=== PATIENT | male | born 1950 | race Caucasian/White ===

== ENCOUNTER 2022-03-15 01:15 | Emergency (ER) | payer MEDICARE, MEDICAID, SELFPAY ==
[2022-03-15 01:51] VITALS: BP 113/89; PULSE 104; RESP 16; TEMP 36.8; O2SAT 100; BMI 24.1
[2022-03-15 07:36] VITALS: BP 164/101; PULSE 77; RESP 17; TEMP 36.9; O2SAT 99
--- NOTE | 2022-03-15 08:03 | ED.EXTPRO ---
HPI - Extremity Problem General Chief complaint: Extremity Problem Stated complaint: blister on foot Time Seen by Provider: 03/15/22 07:51 Source: patient Mode of arrival: ambulatory Limitations: no limitations History of Present Illness HPI Narrative: This is a very pleasant 71 years old male presented to the ED with chief complaint of a blister in the right lower extremity, atraumatic, since yesterday morning. Patient denies any systemic symptoms such as fever chills vomiting diarrhea. He has history of vasculitis is on prednisone 5 mg daily chronically. MD Complaint: other (Right leg blister) Onset (ago): day(s) (1) Pain Consistency: constant Location: right and lower extremity Quality: constant Radiation: none Exacerbating factors: nothing Related Data Home Medications Medication Instructions Recorded Confirmed amlodipine 5 mg tablet 5 mg PO DAILY 08/15/21 cholecalciferol (vitamin D3) 50 50 mcg PO DAILY 08/15/21 mcg (2,000 unit) tablet hydralazine 50 mg tablet 50 mg PO TID 08/15/21 prednisone 5 mg tablet 5 mg PO DAILY 08/15/21 simvastatin 5 mg tablet 5 mg PO DAILY 08/15/21 Allergies Allergy/AdvReac Type Severity Reaction Status Date / Time No Known Allergies Allergy Unverified 05/09/20 15:37 [No Known Allergies*] Review of Systems Review of Systems: Yes all other systems are reviewed and are negative Constitutional: Constitutional: Reports no additional constitutional complaints Cardiovascular: Cardiovascular: Reports no additional cardiovascular complaints Respiratory: Respiratory: Reports no additional respiratory complaints Musculoskeletal: Musculoskeletal: Reports no additional musculoskeletal complaints [facility] Past Medical History [facility] Narrative: Hypertension, vasculitis Social History Social History Advance Directives: Yes Advance Directives Information Provided: Yes Advance Directives on File: No Physical Exam Vital Signs: Vital Signs: Last Vital Signs Temp 98.5 F 03/15/22 07:36 Pulse 77 03/15/22 07:36 Resp 17 03/15/22 07:36 BP 164/101 H 03/15/22 07:36 Pulse Ox 99 03/15/22 07:36 O2 Del Method 03/15/22 07:36 BMI result Body Mass Index 24.1 Const: Other: On examination he looks well is no toxic-appearing General: cooperative, healthy appearing and comfortable Nutritional Appearance: average body habitus Orientation/consciousness: patient oriented x3 Limitations: no limitations HEENT: Head: Yes normal to inspection Neck: Neck: Yes normal visual inspection and Yes full ROM Resp: Effort & Inspection: normal respiratory effort and able to speak in complete sentences Auscultation: clear to auscultation bilaterally Percussion: percussion normal Cardio: Jugular venous distension: no JVD Rate: regular rate Rhythm: regular rhythm GI: Inspection: Yes normal to inspection Palpation (GI): Soft to palpation, not firm and nontender Auscultation: normal bowel sounds Skin: Other: Neuro: General: patient oriented x3 Extrem: Other: Examination the right lower extremity shows good palpable pulses, there is a 2 cm blister in the anterolateral aspect of the distal right leg. No evidence of cellulitis Course Reevaluation(s) Reevaluation #1: Remain nontoxic afebrile labs are within normal limits I think it can be discharged home and follow up with is primary care physician. I explained him that the the blister can break in that case he should keep clean and covered MDM - Extremity (Nontraumatic) Lab Data Result diagrams: 03/15/22 09:15 03/15/22 09:15 Labs: Lab Results 03/15/22 03/15/22 03/15/22 Range/Units 09:15 09:15 09:15 WBC 5.8 (4.8-10.8) X10*3/uL RBC 4.70 (4.60-5.80) X10*6/uL Hgb 14.9 (14.0-18.0) g/dl Hct 44.5 (42.0-52.0) % MCV 94.7 (80.0-98.0) fL MCH 31.7 (27.0-33.0) pg MCHC 33.5 (31.0-36.0) g/dl RDW 13.1 (11.0-16.0) % Plt Count 165 (160-400) X10*3/uL MPV 9.8 (9.4-12.4) fL Immature Gran % (Auto) 0.5 H (0.0-0.4) % Neut % (Auto) 75.0 H (45-73) % Lymph % (Auto) 15.5 L (20-40) % [place] % (Auto) 7.1 (2-11) % Eos % (Auto) 1.4 (0-4) % Baso % (Auto) 0.5 (0-2) % Lymph # (Auto) 0.9 L (1.2-4.9) X10*3/uL [place] # (Auto) 0.4 (0.1-1.2) X10*3/uL Eos # (Auto) 0.1 (0.0-0.4) X10*3/uL Baso # (Auto) 0.0 (0.0-0.2) X10*3/uL Abs Immat Gran (auto) 0.03 (0.00-0.03) X10*3/uL Absolute Neuts (auto) 4.3 (2.0-8.3) x10*3/uL Absolute Nucleated RBC 0.000 (0.0-0.012) X10*3/uL Nucleated RBC % (auto) 0.0 (0.0-0.2) /100WBC PT (10.0-13.1) SEC INR (0.9-1.1) APTT 34.0 (24.1-38.0) SEC Sodium 135 (135-145) mmol/L Potassium 4.1 (3.3-5.1) mmol/L Chloride 104 (96-108) mmol/L Carbon Dioxide 22 (22-29) mmol/L Anion Gap 13 (12-20) BUN 12 (9-16) mg/dL Creatinine 0.91 (0.5-1.4) mg/dL Estim Creat Clear Calc 82.9 Estimated GFR > 60 Random Glucose 105 (60-115) mg/dL Calcium 9.4 (8.4-10.2) mg/dL Total Bilirubin 0.7 (0.0-1.0) mg/dL AST 33 (5-37) U/L ALT 22 (0-40) U/L Alkaline Phosphatase 98 (39-117) U/L Total Protein 7.2 (6.5-8.0) g/dL Albumin 4.4 (3.5-5.0) g/dL 03/15/22 Range/Units 09:15 WBC (4.8-10.8) X10*3/uL RBC (4.60-5.80) X10*6/uL Hgb (14.0-18.0) g/dl Hct (42.0-52.0) % MCV (80.0-98.0) fL MCH (27.0-33.0) pg MCHC (31.0-36.0) g/dl RDW (11.0-16.0) % Plt Count (160-400) X10*3/uL MPV (9.4-12.4) fL Immature Gran % (Auto) (0.0-0.4) % Neut % (Auto) (45-73) % Lymph % (Auto) (20-40) % [place] % (Auto) (2-11) % Eos % (Auto) (0-4) % Baso % (Auto) (0-2) % Lymph # (Auto) (1.2-4.9) X10*3/uL [place] # (Auto) (0.1-1.2) X10*3/uL Eos # (Auto) (0.0-0.4) X10*3/uL Baso # (Auto) (0.0-0.2) X10*3/uL Abs Immat Gran (auto) (0.00-0.03) X10*3/uL Absolute Neuts (auto) (2.0-8.3) x10*3/uL Absolute Nucleated RBC (0.0-0.012) X10*3/uL Nucleated RBC % (auto) (0.0-0.2) /100WBC PT 11.0 (10.0-13.1) SEC INR 1.0 (0.9-1.1) APTT (24.1-38.0) SEC Sodium (135-145) mmol/L Potassium (3.3-5.1) mmol/L Chloride (96-108) mmol/L Carbon Dioxide (22-29) mmol/L Anion Gap (12-20) BUN (9-16) mg/dL Creatinine (0.5-1.4) mg/dL Estim Creat Clear Calc Estimated GFR Random Glucose (60-115) mg/dL Calcium (8.4-10.2) mg/dL Total Bilirubin (0.0-1.0) mg/dL AST (5-37) U/L ALT (0-40) U/L Alkaline Phosphatase (39-117) U/L Total Protein (6.5-8.0) g/dL Albumin (3.5-5.0) g/dL Discharge Plan Discharge Clinical Impression: Blister of leg, right Patient Disposition: Home, Self-Care Additional Instructions: Follow-up with your primary care physician, return if you worse, if the blister break keep it clean and cover with gauze Prescriptions: No Action simvastatin 5 mg tablet 5 mg PO DAILY amlodipine 5 mg tablet 5 mg PO DAILY hydralazine 50 mg tablet 50 mg PO TID prednisone 5 mg tablet 5 mg PO DAILY cholecalciferol (vitamin D3) 50 mcg (2,000 unit) tablet 50 mcg PO DAILY Referrals: Tonny Chamberlain MD [Primary Care Provider] - 2 days Interventions: ED Discharge Assessment Last Done: 03/15/22 09:58 Discharge Date/Time: 03/15/22 09:58
[2022-03-15 09:19] LABS: MANUAL DIFF FLAG NO
[2022-03-15 09:21] LABS: Basophils Percent Auto 0.5 % (0-2); Eosinophils Absolute Auto 0.1 X10*3/uL (0.0-0.4); Eosinophils Percent Auto 1.4 % (0-4); Hematocrit 44.5 % (42.0-52.0); Hemoglobin 14.9 g/dl (14.0-18.0); Imm Gran Abs Auto 0.03 X10*3/uL (0.00-0.03); Imm Gran Pct Auto 0.5 % (0.0-0.4); Lymphocytes Absolute Auto 0.9 X10*3/uL (1.2-4.9); Lymphocytes Percent Auto 15.5 % (20-40); Mean Corpuscular HGB Conc 33.5 g/dl (31.0-36.0); Mean Corpuscular Hemoglobin 31.7 pg (27.0-33.0); Mean Corpuscular Volume 94.7 fL (80.0-98.0); Mean Platelet Volume 9.8 fL (9.4-12.4); Monocytes Absolute Auto 0.4 X10*3/uL (0.1-1.2); Monocytes Percent Auto 7.1 % (2-11); Neutrophils Absolute Auto 4.3 x10*3/uL (2.0-8.3); Platelet Count 165 X10*3/uL (160-400); Red Cell Distribution Width 13.1 % (11.0-16.0); White Blood Count 5.8 X10*3/uL (4.8-10.8)
[2022-03-15 09:37] LABS: Alanine Aminotransferase 22 U/L (0-40); Albumin Level 4.4 g/dL (3.5-5.0); Alkaline Phosphatase 98 U/L (39-117); Anion Gap 13 (12-20); Aspartate Amino Transferase 33 U/L (5-37); Bilirubin Total 0.7 mg/dL (0.0-1.0); Blood Urea Nitrogen 12 mg/dL (9-16); Calcium 9.4 mg/dL (8.4-10.2); Carbon Dioxide 22 mmol/L (22-29); Chloride 104 mmol/L (96-108); Creatinine Clr Calc Pharmacy 82.9; Estimated Glomerular Filt Rate > 60; Glucose Random 105 mg/dL (60-115); Potassium 4.1 mmol/L (3.3-5.1); Sodium 135 mmol/L (135-145); Total Protein 7.2 g/dL (6.5-8.0)
== END 2022-03-15 09:58 | disposition home or self-care (01) ==
PROVIDERS: Emergency Provider Emergency Medicine; PCP Internal Medicine
DX: S80.821A Blister (nonthermal), right lower leg, initial encounter (principal); X58.XXXA Exposure to other specified factors, initial encounter; Y93.9 Activity, unspecified; Y92.9 Unspecified place or not applicable; Y99.9 Unspecified external cause status; Z79.899 Other long term (current) drug therapy
CPT/HCPCS: 36415; 80053; 85025; 85610; 85730; 99283

== ENCOUNTER 2022-06-25 10:04 | Emergency (ER) | payer MEDICARE, MEDICAID, SELFPAY ==
[2022-06-25 10:45] VITALS: BP 162/97; PULSE 108; RESP 18; TEMP 36.8; O2SAT 98; BMI 23.7
--- NOTE | 2022-06-25 13:13 | ED_ITS ---
HPI - Skin/Abscess/Foreign Bdy General Chief complaint: Skin/Abscess/Foreign Body Stated complaint: Bleeding Callous Bottom R Foot Time Seen by Provider: 06/25/22 12:42 Source: patient, RN notes reviewed and old records reviewed Mode of arrival: ambulatory Limitations: no limitations History of Present Illness HPI narrative: 72-year-old male is he here today for bleeding of right foot callus. Patient seen his veterinary technology instructor the middle of May to trimmed his callus to his right foot. Patient reports that he had no issues, no bleeding no s/sx of infection Last night he applied sticky foam to protect from rubbing against his shoe and when he removed that this morning he noticed that there was bleeding. Patient reports that he pulled piece of skin with it. Small amount of bleeding. Patient got scared. Called his veterinary technology instructor and has an appointment with him on Wednesday at 16:00. Patient is not diabetic. Patient denies having any arterial or venous insufficiency. No fever or chills, no serosanguineous drainage. Patient denies any increased discomfort. MD complaint: other (Callus) Onset (ago): day(s) Severity: mild Related Data Home Medications Medication Instructions Recorded Confirmed amlodipine 5 mg tablet 5 mg PO DAILY 08/15/21 cholecalciferol (vitamin D3) 50 50 mcg PO DAILY 08/15/21 mcg (2,000 unit) tablet hydralazine 50 mg tablet 50 mg PO TID 08/15/21 prednisone 5 mg tablet 5 mg PO DAILY 08/15/21 simvastatin 5 mg tablet 5 mg PO DAILY 08/15/21 Allergies Allergy/AdvReac Type Severity Reaction Status Date / Time No Known Allergies Allergy Unverified 05/09/20 15:37 [No Known Allergies*] Review of Systems Review of Systems: Constitutional : No Weight loss, No Fever, No Chills, No Night Sweats, No Fatigue, No Malaise ENT/Mouth : No Hearing loss, No Ear Pain, No Nasal Congestion, No Sinus Pain, No Hoarseness, No sore throat, No Rhinorrhea, No Swallowing Difficulty Musculoskeletal : No joint pain, No Myalgias, No Joint Swelling Skin : No Skin Lesions, No rash, Neuro : No Weakness, No Numbness, No Paresthesias, No Loss of Consciousness, No Dizziness, No Headache Psych : No Anxiety/Panic, No Depression, No SI/HI/AH/VH, No Social Issues, Heme/Lymph: No Bruising, No Bleeding,No Lymphadenopathy Endocrine : No Polyuria, No Polydipsia, No Temperature Intolerance Yes all other systems are reviewed and are negative PMFSH Social History Social History Advance Directives: Yes Advance Directives Information Provided: Yes Advance Directives on File: No Physical Exam Vital Signs: Vital Signs: Last Vital Signs Temp 98.2 F 06/25/22 10:45 Pulse 108 H 06/25/22 10:45 Resp 18 06/25/22 10:45 BP 162/97 H 06/25/22 10:45 Pulse Ox 98 06/25/22 10:45 O2 Del Method 06/25/22 10:45 BMI result Body Mass Index 23.7 Const: General: healthy appearing, no acute distress and well developed Nu tritional Appearance: well nourished Orientation/consciousness: patient oriented x3 HEENT: Head: Yes normal to inspection, Yes normocephalic and Yes atraumatic Face and sinus: Yes normal facial exam Mouth: Normal oral and palatal mucosa present Throat: Yes posterior oropharynx normal, Yes tonsils normal and Yes uvula midline Eyes: General: appearance normal, both eyes and all related structures Neck: Neck: Yes normal visual inspection, Yes full ROM and Yes trachea midline Thyroid: Thyroid normal Resp: Effort & Inspection: normal respiratory effort and tracheal deviation : General: Yes no CVA tenderness Back/Spine/Pelvis: Back: no CVA tenderness Skin: General skin exam: elasticity normal, turgor normal and dry skin Neuro: General: patient oriented x3 Extrem: Other: General: Yes normal to inspection, Yes full ROM and Yes capillary refill normal Psych: Appearance: grossly normal Mental Status: mental status grossly normal Speech and movement: Normal speech and movement present Affect: normal affect Attitude: cooperative Thought process: Normal thought process present Thought content: Normal thought content present Insight: Good insight present (Psych) Judgement: Good judgement present (Psych) Course Course Course Narrative: 72-year-old male is he here today for bleeding of his right foot callus. Patient seen his veterinary technology instructor the middle of May to trimmed his callus to his right foot. Patient reports that he had no issues with that at. Last night he applied sticky foam to protect from rubbing against his shoe and when he removed that this morning he noticed that there was bleeding. Patient reports that he pulled piece of skin with it. Small amount of bleeding. Patient got scared. Called his veterinary technology instructor and has an appointment with him on Wednesday at 16:00. Patient is not diabetic. Patient denies having any arterial or venous insufficiency. Area cleaned, bacitracin applied and wrapped with cling. Picture was taken with patient's permission for the chart. Patient was instructed to return to the emergency department if he will have increased redness, swelling, warmth, fever or chills. MDM - Skin/Abscess/Foreign Bdy MDM Narrative Medical decision making narrative: wound care Medical Records Attestation: I reviewed the patient's medical records. Discharge Plan Discharge Clinical Impression: Callus Patient Disposition: Home, Self-Care Instructions: Chronic Wounds (ED) Additional Instructions: Please make sure that you keep your area clean and dry. Apply bacitracin daily with none sticky dressing. Making sure your wrap that with provided rap. Follow-up with your veterinary technology instructor on Wednesday. Make sure you watch for signs and symptoms of infection like increased redness, swelling, fever. If you do have any of those symptoms in should return to emergency department. Prescriptions: No Action simvastatin 5 mg tablet 5 mg PO DAILY amlodipine 5 mg tablet 5 mg PO DAILY hydralazine 50 mg tablet 50 mg PO TID prednisone 5 mg tablet 5 mg PO DAILY cholecalciferol (vitamin D3) 50 mcg (2,000 unit) tablet 50 mcg PO DAILY Interventions: ED Discharge Assessment Last Done: 06/25/22 14:01 Discharge Date/Time: 06/25/22 14:04
--- NOTE | 2022-06-25 13:58 | PC.NURSE ---
PT EVALUATED BY PROVIDER. WOUND ASSESSED, BACITRACIN APPLIED ALONG WITH DRESSING. PT ALREADY HAS APPT WITH GIS SOFTWARE ENGINEER ON WEDNESDAY. PLAN IS FOR DC HOME. PT AGREEABLE TO PLAN. STATES NO QUESTIONS. +CMS
== END 2022-06-25 14:04 | disposition home or self-care (01) ==
PROVIDERS: Emergency Provider Emergency Medicine; PCP Internal Medicine
DX: L84 Corns and callosities (principal)
CPT/HCPCS: 99282

== ENCOUNTER 2025-01-30 13:49 | Inpatient (IN) | payer MEDICARE, MEDICAID, SELFPAY ==
[2025-01-30] VITALS (7 sets, daily range): BP systolic 109–149; BP diastolic 76–94; PULSE 70–130; RESP 11–26; TEMP 36.4–36.6; O2SAT 96–100; BMI 20.3
--- NOTE | ~2025-01-30 | XR_ITS ---
EXAMINATION: XR CHEST CLINICAL INFORMATION: Chest Pain COMPARISON: 02/10/2008. TECHNIQUE: 2 views of the chest were obtained. FINDINGS: The cardiac, hilar, and mediastinal contours are normal. The lungs are clear bilaterally. There is no pneumothorax or pleural effusion. There is no focal osseous or soft tissue abnormality. There are mild wedge compression deformities of several thoracic vertebral bodies. These were not present in 2007. XR/XR chest 2V IMPRESSION: No active pulmonary disease. Electronically signed by: Tree Verma MD 01/30/2025 03:18 PM EDT RP
--- NOTE | 2025-01-30 13:54 | ECG_ITS ---
Test Reason : ?AFIB Blood Pressure : */* mmHG Vent. Rate : 95 BPM Atrial Rate : * BPM P-R Int : * ms QRS Dur : 74 ms QT Int : 348 ms P-R-T Axes : * 16 41 degrees QTcB Int : 437 ms Atrial fibrillation Nonspecific ST abnormality Abnormal ECG When compared with ECG of 20-Apr-2016 07:41, Atrial fibrillation has replaced Sinus rhythm Referred By: Generic ED Physician Electronically Signed By: DEIDRA PAIZ MD
--- NOTE | 2025-01-30 14:36 | ED_ITS ---
HPI - General Adult General Chief complaint: General Medical Stated complaint: New onset Afib, RVR, 120-150, CP & SOB x1 year Time Seen by Provider: 01/30/25 13:59 Source: patient and RN notes reviewed Mode of arrival: EMS Limitations: no limitations History of Present Illness HPI narrative: Patient is a 74-year-old male presents to the ED for evaluation of multiple complaints. The patient reports he and his significant other/switching clerk initially activated EMS via her life alert activation device as they have determined they are no longer able to care for each other in their home. Patient additionally advises he has been experiencing intermittent episodes of chest pain with tremor which then radiates into his upper abdomen with continued tremor and shortness of breath, symptoms then resolve spontaneously. Patient is unable to identify how long these episodes have been occurring, states he has potentially been experiencing months of symptoms. The patient denies associated recent sick contacts, illness, fever/chills, nausea, vomiting, diarrhea, urinary symptoms, headache, focal neurological deficit, dizziness, or recent fall or other blunt trauma. Patient reports he does suffer from vasculitis with previous left great toe amputation without associated diabetes. Patient reports while in the care of EMS patient was found to have new onset AFib with RVR, patient denies any history of irregular heartbeat, denies anticoagulation. Related Data Home Medications ?Medication ?Instructions ?Recorded ?Confirmed amlodipine 5 mg tablet 5 mg PO DAILY 08/15/21 cholecalciferol (vitamin D3) 50 50 mcg PO DAILY 08/15/21 mcg (2,000 unit) tablet hydralazine 50 mg tablet 50 mg PO TID 08/15/21 prednisone 5 mg tablet 5 mg PO DAILY 08/15/21 simvastatin 5 mg tablet 5 mg PO DAILY 08/15/21 Allergies Allergy/AdvReac Type Severity Reaction Status Date / Time No Known Allergies Allergy Verified 01/30/25 14:24 [No Known Allergies*] Review of Systems 2 Review of Systems: A complete review of systems was performed and was negative except as noted in HPI. [facility] Past Medical History Attestation statement: The following information was validated with the patient. Social History Social History Smoked in Last 30 Days: No Use of substances other than those prescribed or required for medical reasons: No Advance Directives: Yes Advance Directives Information Provided: Yes Advance Directives on File: No Do you have a plan to hurt others: No Plan Physical Exam ED Vital Signs: Vital Signs - 24 hr 01/30/25 14:22 Temperature 97.6 F Pulse Rate 101 H Respiratory Rate 20 Blood Pressure 133/85 Pulse Oximetry 100 Oxygen Delivery Method Room Air BMI result Body Mass Index 20.3 Const Other: CONSTITUTIONAL: The patient appears chronically ill, borderline cachectic, otherwise non-toxic, well nourished and in no acute distress. Vital signs as documented. HEAD: Atraumatic, normocephalic. EYES: EOMs grossly intact, pupils equal, conjunctiva clear, no exudate. ENT: Nares patent, no discharge. Airway patent, no audible stridor, visible mucosa is pink and moist without noted lesions. NECK: Trachea is midline, no obvious masses or gross abnormalities. ? CHEST: Symmetric movement, normal appearance. LUNGS: LS present and CTAB, no w/r/r. Non-labored work of breathing. CARDIAC: Regular Rhythm, S1/S2 appreciated, no murmurs, rubs or gallops. ABDOMEN: Abdomen soft/non-tender x4 quadrants, no masses or organomegaly. : Deferred. EXTREMITIES: Normal tone, moves all extremities spontaneously without reported pain. ?No obvious acute injury or deformity noted. ?There are severe chronic venous stasis color changes noted to the bilateral lower extremities, no associated edema, 2+ DP/PT pulses appreciated, patient is status post left great toe amputation, no open wounds identified, no associated warmth or tenderness. NEURO: Alert and oriented x3, CN II-XII appear grossly intact. Cerebellar Functioning grossly intact. ?Speech clear and appropriate. PSYCH: Anxious but otherwise normal affect, with appropriate eye contact and fluid, appropriate speech. No reported suicidality or homicidality. SKIN: Warm, dry, color appropriate, normal turgor. No rashes noted. Course Course Course Narrative: 01/30/25 1522: EKG in the ED shows new onset AFib compared to previous. Chest x-ray reviewed, shows no focal consolidation, no acute cardiopulmonary process, official read pending. At this time patient's laboratory evaluation is pending. 01/30/25 1623: CBC is resulted and shows no leukocytosis or anemia. Radiology interpretation of chest x-ray confirms no acute cardiopulmonary process. 01/30/25 1656: Remainder of laboratory workup has resulted, no other acute abnormalities identified, 1st troponin is negative. Minimal elevation of BNP. Patient's case discussed with admitting hospitalist Dr. Campbell, patient will be admitted to [facility] for new onset AFib. Per discussion with hospitalist the patient will be treated prophylactically with metoprolol tartrate to reduce risk of recurrent AFib with a RVR. Medical Decision Making Medical Decision Making MDM Narrative: Patient is a 74-year-old male presenting to the ED with multiple complaints including many months of intermittent chest and abdominal pain with associated shortness of breath and tremor. Patient also reports he and his significant other, who was also in the ED, are no longer able to care for themselves and their home and are seeking assistance with long-term care. On exam patient appears cachectic, moderately unkempt, but otherwise has no acute findings. Patient found to be in AFib with RVR by EMS, in the ED heart rate has improved, no indication for emergent rate control, EKG in the ED shows new onset AFib compared to previous. Chest x-ray reviewed, shows no focal consolidation, no acute cardiopulmonary process, official read pending. At this time patient's laboratory evaluation is pending. Seeing as the patient is in a new onset atrial fibrillation of unknown duration, patient will require echocardiogram, and cardiology consultation. Patient will be admitted for new onset atrial fibrillation pending remainder of laboratory workup. Differential Diagnosis Differential Diagnoses: The differential diagnosis associated with the presentation includes New onset atrial fibrillation, dehydration, failure to thrive, and malnourishment. ACS considered but is less likely. Admission/Observation Consideration of admission/observation: Escalation of care including admission/observation considered Lab Data [facility] Lab Attestation statement: I reviewed the patient's lab results. 01/30/25 16:04 01/30/25 16:04 Labs: Lab Results 01/30/25 01/30/25 Range/Units 16:04 16:07 WBC 6.5 (4.8-10.8) X10*3/uL RBC 4.68 (4.60-5.80) X10*6/uL Hgb 13.9 L (14.0-18.0) g/dl Hct 41.8 L (42.0-52.0) % MCV 89.3 (80.0-98.0) fL MCH 29.7 (27.0-33.0) pg MCHC 33.3 (31.0-36.0) g/dl RDW 13.9 (11.0-16.0) % Plt Count 157 L (160-400) X10*3/uL MPV 10.0 (9.4-12.4) fL Immature Gran % (Auto) 0.8 H (0.0-0.4) % Neut % (Auto) 71.7 (45-73) % Lymph % (Auto) 17.9 L (20-40) % [place] % (Auto) 7.9 (2-11) % Eos % (Auto) 1.1 (0-4) % Baso % (Auto) 0.6 (0-2) % Lymph # (Auto) 1.2 (1.2-4.9) X10*3/uL [place] # (Auto) 0.5 (0.1-1.2) X10*3/uL Eos # (Auto) 0.1 (0.0-0.4) X10*3/uL Baso # (Auto) 0.0 (0.0-0.2) X10*3/uL Abs Immat Gran (auto) 0.05 H (0.00-0.03) X10*3/uL Absolute Neuts (auto) 4.7 (2.0-8.3) x10*3/uL Absolute Nucleated RBC 0.000 (0.0-0.012) X10*3/uL Nucleated RBC % (auto) 0.0 (0.0-0.2) /100WBC Sodium 140 (135-145) mmol/L Potassium 4.1 (3.3-5.1) mmol/L Chloride 107 (96-108) mmol/L Carbon Dioxide 23 (22-29) mmol/L Anion Gap 14 (12-20) BUN 11 (9-16) mg/dL Creatinine 0.90 (0.5-1.4) mg/dL Estim Creat Clear Calc 68.2 Estimated GFR > 60 Random Glucose 88 (60-115) mg/dL Calcium 9.5 (8.4-10.2) mg/dL Magnesium 2.0 (1.6-2.6) mg/dL Total Bilirubin 0.9 (0.0-1.0) mg/dL AST 24 (5-37) U/L ALT 8 (0-40) U/L Alkaline Phosphatase 64 (39-117) U/L Troponin I High Sens 5.5 (<3.5-35.0) ng/L B-Natriuretic Peptide 111 H (<100) pg/mL Total Protein 6.2 L (6.5-8.0) g/dL Albumin 4.0 (3.5-5.0) g/dL Lipase 27 (8-78) U/L TSH 1.57 (0.32-4.0) uIU/mL Independent Interpretation I performed an independent interpretation of an: EKG (EKG shows atrial fibrillation with a rate of 95, no evidence of acute ischemia, no ST elevation, no ectopy. QTC 437. Compared to previous on 04/20/2016 atrial fibrillation is new.) and Plain X-Ray (Two-view chest shows no focal consolidation, no acute cardiopulmonary process identified.) Radiology Impression Discussion of test interpretation with radiology: I have reviewed the radiologist's reading. External Record Review External record reviewed: Inpatient record, Outpatient record, Prior outpatient labs and Prior outpatient radiology Discharge Plan Discharge Clinical Impression: Atrial fibrillation, new onset Patient Disposition: Admitted As Inpatient Prescriptions: No Action simvastatin 5 mg tablet 5 mg PO DAILY amlodipine 5 mg tablet 5 mg PO DAILY hydralazine 50 mg tablet 50 mg PO TID prednisone 5 mg tablet 5 mg PO DAILY cholecalciferol (vitamin D3) 50 mcg (2,000 unit) tablet 50 mcg PO DAILY Print Language: [place]
[2025-01-30 16:14] LABS: MANUAL DIFF FLAG NO
[2025-01-30 16:18] LABS: Basophils Percent Auto 0.6 % (0-2); Eosinophils Absolute Auto 0.1 X10*3/uL (0.0-0.4); Eosinophils Percent Auto 1.1 % (0-4); Hematocrit 41.8 % (42.0-52.0); Hemoglobin 13.9 g/dl (14.0-18.0); Imm Gran Abs Auto 0.05 X10*3/uL (0.00-0.03); Imm Gran Pct Auto 0.8 % (0.0-0.4); Lymphocytes Absolute Auto 1.2 X10*3/uL (1.2-4.9); Lymphocytes Percent Auto 17.9 % (20-40); Mean Corpuscular HGB Conc 33.3 g/dl (31.0-36.0); Mean Corpuscular Hemoglobin 29.7 pg (27.0-33.0); Mean Corpuscular Volume 89.3 fL (80.0-98.0); Monocytes Absolute Auto 0.5 X10*3/uL (0.1-1.2); Monocytes Percent Auto 7.9 % (2-11); Neutrophils Absolute Auto 4.7 x10*3/uL (2.0-8.3); Neutrophils Percent Auto 71.7 % (45-73); Platelet Count 157 X10*3/uL (160-400); Red Blood Count 4.68 X10*6/uL (4.60-5.80); Red Cell Distribution Width 13.9 % (11.0-16.0); White Blood Count 6.5 X10*3/uL (4.8-10.8)
[2025-01-30 16:30] LABS: Alanine Aminotransferase 8 U/L (0-40); Alkaline Phosphatase 64 U/L (39-117); Anion Gap 14 (12-20); Aspartate Amino Transferase 24 U/L (5-37); Bilirubin Total 0.9 mg/dL (0.0-1.0); Blood Urea Nitrogen 11 mg/dL (9-16); Calcium 9.5 mg/dL (8.4-10.2); Carbon Dioxide 23 mmol/L (22-29); Chloride 107 mmol/L (96-108); Creatinine Clr Calc Pharmacy 68.2; Estimated Glomerular Filt Rate > 60; Glucose Random 88 mg/dL (60-115); Lipase 27 U/L (8-78); Potassium 4.1 mmol/L (3.3-5.1); Sodium 140 mmol/L (135-145); Total Protein 6.2 g/dL (6.5-8.0)
[2025-01-30 16:34] LABS: B Type Natriuretic Peptide 111 pg/mL (<100)
[2025-01-30 16:38] LABS: Troponin-I High Sensitivity 5.5 ng/L (<3.5-35.0)
[2025-01-30 16:50] LABS: TSH reflex Free T4 1.57 uIU/mL (0.32-4.0)
[2025-01-30] MEDS: Metoprolol Tartrate 25 MG TABLET PO ×2 (17:14→20:38)
--- NOTE | 2025-01-30 17:24 | PC.NURSE ---
medicated patient as charted. he states he is unable to swallow his medication, at home he soaks them, med liquified and taken without difficulty. he swallows without extra effort, no coughing following
--- NOTE | 2025-01-30 17:29 | PM.IMHP ---
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 The patient is a poor historian. Reports intermittent heaviness on the left side of his chest, shortness of breath, worse on exertion, for years, his significant other was also having medical issues so they called EMS for both of them. denies fever, chills, n/v/d, noted to be in rapid afib low 100s. Review of Systems Review of Systems: Yes all other systems are reviewed and are negative FOR[facility]LY [facility], [facility] Medical History (Updated 01/30/25 @ 17:32 by Narciso Lopez MD) Leukocytoclastic vasculitis Social History Smoked in Last 30 Days: No Use of substances other than those prescribed or required for medical reasons: No Advance Directives: Yes Advance Directives Information Provided: Yes Advance Directives on File: No Do you have a plan to hurt others: No Plan Meds Allergies Allergy/AdvReac Type Severity Reaction Status Date / Time No Known Allergies Allergy Verified 01/30/25 14:24 [No Known Allergies*] Active Medications: Current Medications Acetaminophen (Acetaminophen 325 Mg Tablet) 650 mg PO Q6H PRN PRN Reason: Pain, Mild 1-3,fever,headache Apixaban (Apixaban 5 Mg Tablet) 5 mg PO BID [facility] Calcium Carbonate (Calcium Carbonate 750 Mg Tab.Chew) 750 mg PO Q4H PRN PRN Reason: Heartburn Magnesium Hydroxide (Milk Of Magnesia 30 Ml Oral.Susp) 30 ml PO DAILY PRN PRN Reason: Constipation Melatonin (Melatonin 3 Mg Tablet) 6 mg PO BEDTIME PRN PRN Reason: Insomnia Sodium Chloride (0.9 % Sodium Chloride Flush 3 Ml Syringe) 3 [facility] Home Medications ?Medication ?Instructions ?Recorded ?Confirmed ?Last Taken ?Type amlodipine 5 mg tablet 5 mg PO DAILY 08/15/21 Unknown History cholecalciferol (vitamin D3) 50 50 mcg PO DAILY 08/15/21 Unknown History mcg (2,000 unit) tablet hydralazine 50 mg tablet 50 mg PO TID 08/15/21 Unknown History prednisone 5 mg tablet 5 mg PO DAILY 08/15/21 Unknown History simvastatin 5 mg tablet 5 mg PO DAILY 08/15/21 Unknown History Physical Exam Vital Signs and Narrative: Vital Signs: Last Vital Signs Temp 97.6 F 01/30/25 14:22 Pulse 96 01/30/25 17:16 Resp 16 01/30/25 17:16 BP 145/87 H 01/30/25 17:16 Pulse Ox 100 01/30/25 14:22 O2 Del Method Room Air 01/30/25 14:22 BMI result Body Mass Index 20.3 General: AO X 3, no acute distress, poor dentition Resp: CTA bilateral, no accessory muscles used CVS: S1,S2,Rapid irregular GI: soft, non tender, non distended Neuro: motor grossly intact, alert Results Labs 01/30/25 16:04 01/30/25 16:04 Labs: Laboratory Results - last 24 hr 01/30/25 01/30/25 16:04 16:07 MCV 89.3 MCH 29.7 MCHC 33.3 RDW 13.9 Plt Count 157 L MPV 10.0 Immature Gran % (Auto) 0.8 H Neut % (Auto) 71.7 Lymph % (Auto) 17.9 L [place] % (Auto) 7.9 Eos % (Auto) 1.1 Baso % (Auto) 0.6 Lymph # (Auto) 1.2 [place] # (Auto) 0.5 Eos # (Auto) 0.1 Baso # (Auto) 0.0 Abs Immat Gran (auto) 0.05 H Absolute Neuts (auto) 4.7 Absolute Nucleated RBC 0.000 Nucleated RBC % (auto) 0.0 Anion Gap 14 Estim Creat Clear Calc 68.2 Estimated GFR > 60 Random Glucose 88 Calcium 9.5 Magnesium 2.0 Total Bilirubin 0.9 AST 24 ALT 8 Alkaline Phosphatase 64 Troponin I High Sens 5.5 B-Natriuretic Peptide 111 H Total Protein 6.2 L Albumin 4.0 Lipase 27 TSH 1.57 Imaging Radiologist's Impressions: Impressions Chest X-Ray 01/30/25 14:02 IMPRESSION: No active pulmonary disease. 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
--- OUTSIDE RECORDS SUMMARY | 2025-01-30 18:19 | XMS_ITS | Encounter Summary ---
Author Organization [facility] Address [address] [place] [address] Care Team Providers Care Swing Manager Name Role Phone Tonny Chamberlain MD Primary Care Provider [phone] Encounter Details Date Type Department Care Team (Late st Contact Info) Description 01/09/2025 Telephone Internal Medicine - [place] [address] [facility] [address] [place] [address] Lora Dixon MA Social History Tobacco Use Types Packs/Day Years Used Date Smoking Tobacco: Never Smokeless Tobacco: Never Alcohol Use Standard Drinks/Week Comments No 0 (1 standard drink = 0.6 oz pur e alcohol) Sex and Gender Information Value Date Recorded Sex Assigned at Not on file Legal Sex Male 9:34 PM EST Gender Identity Not on file Sexual Orientation Not on file documented as of this encounter Progress Notes * Tonny Chamberlain MD - 01/29/2025 3:41 PM EDT This can only be done unless you take him to the ER. * Lora Dixon MA - 01/29/2025 2:37 PM EDT Pls advise? * Ritu Butler - 01/25/2025 12:24 PM EDT Patient spouse called and stated that the patient needs to be in a [facility] because he is getting very confused and can not take care of himself and is having a hard time. Please advise Cb# [phone] * Anika Garcia - 01/19/2025 2:22 PM EDT Sent message to [employer] Supervisor to see if she can help with this situation. * Tonny Chamberlain MD - 01/12/2025 11:40 AM EDT Can you check on this * Jacquelyn Hdz MA - 01/12/2025 11:34 AM EDT Please provide, and send referral for patient. * Tonny Chamberlain MD - 01/09/2025 3:07 PM EDT Needs a perinatal social worker referral. * Lora Dixon MA - 01/09/2025 1:10 PM EDT Pt called stated how can he get the [place] going [place]. Patient stated I can't take care of myself anymore I need a [place] care Pls advise? documented in this encounter Plan of Treatment Upcoming Encounters Date Type Department Care Team (Late st Contact Info) Description 02/12/2025 3:00 PM EDT Office Visit Internal Medicine - [place] [address] [facility] [address] [place] [address] Tonny Chamberlain MD [address] [facility] [address] [place] [address] documented as of this encounter Visit Diagnoses Not on filedocumented in this encounter Care Teams Swing Manager Relationship Specialty Start Date End Date Tonny Chamberlain MD PCP - General Internal Medicine 12/21/18 documented as of this encounter
--- NOTE | 2025-01-30 18:24 | PHA.MEDREC ---
Addendum entered by Edy Eckert RPh 01/30/25 18:31: med rec reviewed Original Note: Pharmacy Consult ? Medication Reconciliation Pharmacy has completed the medication reconciliation. Spoke to patient to confirm med list. Patient was able to name all his medications and matched claims. Patient had all his morning medication today.
[2025-01-30] MEDS: hydrALAZINE HCl 50 MG TABLET PO (20:38)
[2025-01-30] MEDS: Apixaban 5 MG TABLET PO (20:38)
[2025-01-30] MEDS: Atorvastatin Calcium 10 MG TABLET PO (20:38)
[2025-01-31] VITALS (9 sets, daily range): BP systolic 87–143; BP diastolic 54–92; PULSE 72–101; RESP 11–18; TEMP 36.6–36.9; O2SAT 94–100; BMI 20.1
--- NOTE | 2025-01-31 01:30 | PC.NURSE ---
pt placed in hospital bed and given warm blanket.
[2025-01-31 05:29] LABS: Hematocrit 42.2 % (42.0-52.0); Hemoglobin 13.6 g/dl (14.0-18.0); Mean Corpuscular HGB Conc 32.2 g/dl (31.0-36.0); Mean Corpuscular Hemoglobin 29.1 pg (27.0-33.0); Mean Corpuscular Volume 90.2 fL (80.0-98.0); Mean Platelet Volume 10.4 fL (9.4-12.4); Platelet Count 163 X10*3/uL (160-400); Red Blood Count 4.68 X10*6/uL (4.60-5.80); Red Cell Distribution Width 13.9 % (11.0-16.0)
[2025-01-31 05:50] LABS: Anion Gap 14 (12-20); Blood Urea Nitrogen 9 mg/dL (9-16); Calcium 9.1 mg/dL (8.4-10.2); Carbon Dioxide 22 mmol/L (22-29); Chloride 107 mmol/L (96-108); Creatinine Clr Calc Pharmacy 79.7; Estimated Glomerular Filt Rate > 60; Glucose Random 77 mg/dL (60-115); Potassium 3.9 mmol/L (3.3-5.1); Sodium 139 mmol/L (135-145)
[2025-01-31 06:03] LABS: D Dimer High Sensitivity < 150 NG/ML
--- NOTE | 2025-01-31 07:00 | CA_ITS ---
Transthoracic Echocardiogram Patient (Last, First, Middle): Alex Hernández, Gender: Male Date of : 1950 Age: 74 Procedure Date: 01/31/2025 Procedure Type: Transthoracic Echocardiogram Location: ER Height: 182.88 cm Weight: 68.04 kg BSA: 1.89 m2 Heart Rate: bpm BP: 140 / 77 mmHg Compilation Clerk: NELLIE/NEELA Referring MD: Narciso Lopez MD Clinic Lead: George Barker MD Symptoms: new afib Study Quality: Adequate w contrast ECG Rhythm: Atrial Fibrillation Conclusions: - 1. Normal LV ejection fraction of 60- 65% 2. Severe left atrial enlargement and moderate right atrial enlargement 3. Moderately dilated right ventricle with mildly reduced RV systolic function 4. Normal cardiac valvular Dopplers 5. Mildly elevated right ventricular systolic pressure with mildly elevated right atrial pressures 6. Upper limits of normal ascending aortic size 7. No gross pericardial effusion Findings Procedure Information Contrast agent, definity, is being given per protocol without apparent complications. Left Ventricle Normal left ventricular size, thickness, and systolic function. The visually estimated ejection fraction is between 60-65%. Diastolic function is indeterminate on the basis of available data. Right Ventricle Moderately increased right ventricular cavity size. There is mildly decreased right ventricular systolic function. Atria The left atrium is severely dilated. There is no evidence of interatrial shunt. The right atrium is moderately dilated. Aortic Valve The aortic valve was not well visualized. There is no aortic valve stenosis. There is no aortic valve regurgitation. Mitral Valve There is mild anterior and posterior mitral leaflet thickening. There is mild mitral annular calcification. There is trace mitral valve regurgitation. There is no mitral valve stenosis. Pulmonic Valve The pulmonic valve was not well visualized. Tricuspid Valve Likely normal tricuspid valve structure and function. There is mild tricuspid valve regurgitation. Mildly elevated right atrial pressure. Mild pulmonary hypertension is present. Great Vessels The pulmonary artery was not well visualized. Small plaque is seen in the sino tubular ridge. Venous The inferior vena cava is mildly dilated and collapses less than 50% with inspiration. Pericardium/Pleural There is no evidence of pericardial effusion. Prior Study Comparison No prior study available for comparison. Measurements 2D Linear Measurements IVSd: 0.75 0.6-0.9/0.6-1.0 cm LVIDd: 4.66 3.9-5.3/4.2-5.9 cm LVIDd Index: 2.47 2.4-3.2/2.2-3.1 cm/m2 LVIDs: 3.01 2.0-3.6 cm LVPWd: 0.79 0.7-1.1 cm LA Diam: 3.60 2.7-3.8/3.0-4.0 cm LAIDs Index: 1.90 1.5-2.3 cm/m2 LV Mass: 141.90 67-162/88-224 g LV Mass Index: 75.08 43-95/49-115 g/m2 LVOT Diam: 2.10 3.0+(-)1.3 cm 2D Systolic Function EF 4C: 56.30 >55% EF 2C: 65.80 >55% EF BiP: 60.20 >55% Aortic Valve AoV Pk Ameya: 0.90 AoV Mn Ameya: 0.56 AoV VTI: 0.15 AoV Pk Grad: 3.00 Aov Mn Grad: 1.00 FUNMILAYO Cont.VTI: 3.26 LVOT LVOT Pk Ameya: 0.70 LVOT Mn Ameya: 0.46 LVOT VTI: 0.14 LVOT Pk Grad: 2.00 LVOT Mn Grad: 1.00 LVOT Diam: 2.10 LVOT Area: 3.46 Right Ventricle TAPSE (mm): 14.20 TVS' Ameya: 7.72 Tricuspid Valve TR Pk Ameya: 3.01 TR Pk Grad: 36.00 RA Press: 8.00 RVSP: 44.00 Great Vessels Aorta Sinus of Valsalva: 3.60 2.0-3.5 cm Ao Asc: 3.50 2.1-3.4 cm Updated in Other Vendor System with Status of Final George Barker MD electronically signed on 01/31/2025 3:34:04 PM with status of Final
[2025-01-31] MEDS: Cholecalciferol (Vitamin D3) 25 MCG TABLET 50 MCG PO (08:05)
[2025-01-31] MEDS: hydrALAZINE HCl 50 MG TABLET PO (08:06)
[2025-01-31] MEDS: Apixaban 5 MG TABLET PO ×2 (08:06→19:32)
[2025-01-31] MEDS: amLODIPine Besylate 5 MG TABLET PO (08:12)
[2025-01-31] MEDS: Metoprolol Tartrate 50 MG TABLET PO (08:12)
[2025-01-31] MEDS: predniSONE 5 MG TABLET PO (08:13)
--- NOTE | 2025-01-31 09:15 | MHC.CM.PN ---
Addendum entered by Radha Ayala 01/31/25 09:24: Patient's Friend/January is Patient's Significant Other's Niece. Original Note: Patient is documented to be a poor Historian; CM attempted anyway to meet with him in the ED, but he was getting an ECHO. Patient's Significant Other is also in the ED. CM spoke with Contact/Friend/January @ [phone] and addressed VICK with her (original will be mailed to January and a copy will be placed on the chart). Per January, [facility] is involved with the couple; Patient has a [employer] 2X/week and the Plan is STR into likely LTC (per January, the couple cannot adequately care for themselves nor each other). CM has initiated and will follow for dc planning. PCP is Dr. Tonny Chamberlain and Patient will likely require BLS transport at time of dc. January was not sure if Patient has a HCP.
--- NOTE | 2025-01-31 09:45 | P.PNIM_ITS ---
Subjective Subjective Date of Service: 01/31/25 Interval History: improved Physical Exam 2 Vital Signs: Vital Signs: Last Vital Signs Temp 98.2 F 01/31/25 07:10 Pulse 101 H 01/31/25 08:12 Resp 14 01/31/25 07:10 BP 143/83 H 01/31/25 08:12 Pulse Ox 99 01/31/25 07:10 O2 Del Method Room Air 01/31/25 07:10 BMI result Body Mass Index 20.3 General: AO X 3, no acute distress Resp: CTA bilateral, no accessory muscles used CVS: S1,S2,irregular GI: soft, non tender, non distended Neuro: motor grossly intact, alert Psych: appropriate affect, appropriate insight Objective Data Active Medications Acetaminophen (Acetaminophen 325 Mg Tablet) 650 mg PO Q6H PRN PRN Reason: Pain, Mild 1-3,fever,headache Amlodipine Besylate (Amlodipine Besylate 5 Mg Tablet) 5 mg PO DAILY [facility]; Protocol Last Admin: 01/31/25 08:12 Dose: 5 mg Documented By: HUNTER Apixaban (Apixaban 5 Mg Tablet) 5 mg PO BID [facility] Last Admin: 01/31/25 08:06 Dose: 5 mg Documented By: HUNTER Atorvastatin Calcium (Atorvastatin Calcium 10 Mg Tablet) 10 mg PO BEDTIME [facility] Last Admin: 01/30/25 20:38 Dose: 10 mg Documented By: JO ANN Calcium Carbonate (Calcium Carbonate 750 Mg Tab.Chew) 750 mg PO Q4H PRN PRN Reason: Heartburn Hydralazine HCl (Hydralazine Hcl 50 Mg Tablet) 50 mg PO TID [facility]; Protocol Last Admin: 01/31/25 08:06 Dose: 50 mg Documented By: HUNTER Magnesium Hydroxide (Milk Of Magnesia 30 Ml Oral.Susp) 30 ml PO DAILY PRN PRN Reason: Constipation Melatonin (Melatonin 3 Mg Tablet) 6 mg PO BEDTIME PRN PRN Reason: Insomnia Metoprolol Tartrate (Metoprolol Tartrate 50 Mg Tablet) 50 mg PO BID [facility]; Protocol Last Admin: 01/31/25 08:12 Dose: 50 mg Documented By: HUNTER Prednisone (Prednisone 5 Mg Tablet) 5 mg PO DAILY [facility] Last Admin: 01/31/25 08:13 Dose: 5 mg Documented By: HUNTER Sodium Chloride (0.9 % Sodium Chloride Flush 3 Ml Syringe) 3 ml IVFLUSH QSHIFT [facility] Last Admin: 01/31/25 07:23 Dose: Not Given Documented By: HUNTER Non-Admin Reason: Patient Asleep Vitamin D (Cholecalciferol (Vitamin D3) 25 Mcg Tablet) 50 mcg PO DAILY [facility] Last Admin: 01/31/25 08:05 Dose: 50 mcg Documented By: HUNTER Labs 01/31/25 04:06 01/31/25 04:06 Labs: Laboratory Results - last 24 hr 01/30/25 01/30/25 01/30/25 16:04 16:07 19:02 MCV 89.3 MCH 29.7 MCHC 33.3 RDW 13.9 Plt Count 157 L MPV 10.0 Immature Gran % (Auto) 0.8 H Neut % (Auto) 71.7 Lymph % (Auto) 17.9 L [place] % (Auto) 7.9 Eos % (Auto) 1.1 Baso % (Auto) 0.6 Lymph # (Auto) 1.2 [place] # (Auto) 0.5 Eos # (Auto) 0.1 Baso # (Auto) 0.0 Abs Immat Gran (auto) 0.05 H Absolute Neuts (auto) 4.7 Absolute Nucleated RBC 0.000 Nucleated RBC % (auto) 0.0 D-Dimer High Sensitivty Anion Gap 14 Estim Creat Clear Calc 68.2 Estimated GFR > 60 Random Glucose 88 Calcium 9.5 Magnesium 2.0 Total Bilirubin 0.9 AST 24 ALT 8 Alkaline Phosphatase 64 Troponin I High Sens 5.5 6.0 B-Natriuretic Peptide 111 H Total Protein 6.2 L Albumin 4.0 Lipase 27 TSH 1.57 01/31/25 04:06 MCV 90.2 MCH 29.1 MCHC 32.2 RDW 13.9 Plt Count 163 MPV 10.4 Immature Gran % (Auto) Neut % (Auto) Lymph % (Auto) [place] % (Auto) Eos % (Auto) Baso % (Auto) Lymph # (Auto) [place] # (Auto) Eos # (Auto) Baso # (Auto) Abs Immat Gran (auto) Absolute Neuts (auto) Absolute Nucleated RBC 0.000 Nucleated RBC % (auto) 0.0 D-Dimer High Sensitivty < 150 Anion Gap 14 Estim Creat Clear Calc 79.7 Estimated GFR > 60 Random Glucose 77 Calcium 9.1 Magnesium 2.0 Total Bilirubin AST ALT Alkaline Phosphatase Troponin I High Sens B-Natriuretic Peptide Total Protein Albumin Lipase TSH Assessment and Plan (1) Atrial fibrillation, new onset: Status: Acute Plan 74M PMH htn, 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
--- NOTE | 2025-01-31 09:57 | PM.CNCAR ---
History of Present Illness History of Present Illness Date of Service: 01/31/25 Requesting physician: Narciso Lopez Consult reason: atrial fibrillation Chief complaint: Rapid a-fib Narrative: I was consulted to see Alex in cardiology consultation today for new onset atrial fibrillation. 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 Patient said his spouse told him to call 911 as he was having chest discomfort. He said the chest discomfort very vague dull ache in the lower retrosternal area which was moving around, on further questioning I have asked whether he there was rapid heart rate and palpitations. He does say that he was feeling rapid heart rate he says he feels better today. On admission he was noted to have new onset atrial fibrillation with rapid ventricular response. He was admitted and rate control. He said his symptoms are better. His troponins are negative. His BNP is minimally elevated 111. There were no other signs of congestive heart failure. He said he takes his medications at home. He has been appropriately started on rate control and oral anticoagulation therapy. He said he has not been thriving well at home and has been gradually declining and request to be placed in a rehab facility. Review of Systems Constitutional: Constitutional: Denies chills, Denies fever(s) and Reports weakness Eyes: Eyes: Reports no additional eye complaints Cardiovascular: Cardiovascular: Reports chest pain at rest, Denies leg edema, Denies lightheadedness, Denies Loss of Consciousness, Reports palpitations and Denies dyspnea Respiratory: Respiratory: Reports no additional respiratory complaints and Denies dyspnea Gastrointestinal: Gastrointestinal: Reports no additional gastrointestinal complaints Genitourinary: Genitourinary: Reports no additional male genitourinary complaints Musculoskeletal: Musculoskeletal: Reports no additional musculoskeletal complaints Neurologic: Reports system reviewed and no additional complaints, except as documented and Reports weakness Psychiatric: Psychiatric: Reports no additional psychiatric complaints Endocrine: Endocrine: Reports palpitations Hematologic/Lymphatic: Hematologic/Lymphatic: Reports no additional hematologic/lymphatic complaints [facility] Past Medical History Medical History Leukocytoclastic vasculitis Social History Social History Smoked in Last 30 Days: No Use of substances other than those prescribed or required for medical reasons: No Advance Directives: Yes Advance Directives Information Provided: Yes Advance Directives on File: No Do you have a plan to hurt others: No Plan service: No Meds Allergies Allergy/AdvReac Type Severity Reaction Status Date / Time No Known Allergies Allergy Verified 01/30/25 14:24 [No Known Allergies*] Active Medications: Current Medications Acetaminophen (Acetaminophen 325 Mg Tablet) 650 mg PO Q6H PRN PRN Reason: Pain, Mild 1-3,fever,headache Amlodipine Besylate (Amlodipine Besylate 5 Mg Tablet) 5 mg PO DAILY [facility]; Protocol Last Admin: 01/31/25 08:12 Dose: 5 mg Apixaban (Apixaban 5 Mg Tablet) 5 mg PO BID [facility] Last Admin: 01/31/25 08:06 Dose: 5 mg Atorvastatin Calcium (Atorvastatin Calcium 10 Mg Tablet) 10 mg PO BEDTIME [facility] Last Admin: 01/30/25 20:38 Dose: 10 mg Calcium Carbonate (Calcium Carbonate 750 Mg Tab.Chew) 750 mg PO Q4H PRN PRN Reason: Heartburn Hydralazine HCl (Hydralazine Hcl 50 Mg Tablet) 50 mg PO TID [facility]; Protocol Last Admin: 01/31/25 08:06 Dose: 50 mg Magnesium Hydroxide (Milk Of Magnesia 30 Ml Oral.Susp) 30 ml PO DAILY PRN PRN Reason: Constipation Melatonin (Melatonin 3 Mg Tablet) 6 mg PO BEDTIME PRN PRN Reason: Insomnia Metoprolol Tartrate (Metoprolol Tartrate 50 Mg Tablet) 50 mg PO BID [facility]; Protocol Last Admin: 01/31/25 08:12 Dose: 50 mg Prednisone (Prednisone 5 Mg Tablet) 5 mg PO DAILY [facility] Last Admin: 01/31/25 08:13 Dose: 5 mg Sodium Chloride (0.9 % Sodium Chloride Flush 3 Ml Syringe) 3 ml IVFLUSH QSHIFT [facility] Last Admin: 01/31/25 07:23 Dose: Not Given Vitamin D (Cholecalciferol (Vitamin D3) 25 Mcg Tablet) 50 mcg PO DAILY [facility] Last Admin: 01/31/25 08:05 Dose: 50 mcg Home Medications ?Medication ?Instructions ?Recorded ?Confirmed ?Last Taken ?Type amlodipine 5 mg tablet 5 mg PO DAILY 08/15/21 01/30/25 01/30/25 History cholecalciferol (vitamin D3) 50 50 mcg PO DAILY 08/15/21 01/30/25 01/30/25 History mcg (2,000 unit) tablet hydralazine 50 mg tablet 50 mg PO TID 08/15/21 01/30/25 01/30/25 History prednisone 5 mg tablet 5 mg PO DAILY 08/15/21 01/30/25 01/30/25 History simvastatin 5 mg tablet 5 mg PO DAILY 08/15/21 01/30/25 01/30/25 History Physical Exam Vital Signs: Vital Signs: Last Vital Signs Temp 98.2 F 01/31/25 07:10 Pulse 101 H 01/31/25 08:12 Resp 14 01/31/25 07:10 BP 143/83 H 01/31/25 08:12 Pulse Ox 99 01/31/25 07:10 O2 Del Method Room Air 01/31/25 07:10 BMI result Body Mass Index 20.3 Const: General: cooperative, comfortable, no acute distress, alert and awake Nutritional Appearance: thin Orientation/consciousness: patient oriented x3 Limitations: no limitations HEENT: Head: Yes normocephalic and Yes atraumatic Neck: Neck: Yes trachea midline, Yes supple and Yes no JVD Resp: Effort & Inspection: normal respiratory effort Auscultation: diminished lung sounds Cardio: Jugular venous distension: no JVD Rate: regular rate Rhythm: abnormal rhythm irregularly irregular Heart sounds: S1 normal heart sound present, S2 normal heart sound present, no click, no gallops, no murmurs and no rubs GI: Auscultation: normal bowel sounds Skin: General skin exam: no rashes or lesions noted Neuro: General: patient oriented x3 and no focal motor deficits Extrem: General: Yes no clubbing, cyanosis or edema Psych: Appearance: grossly normal Objective Labs and Meds 01/31/25 04:06 01/31/25 04:06 Lab results: Laboratory Results - last 24 hr 01/30/25 01/30/25 01/30/25 16:04 16:07 19:02 WBC 6.5 RBC 4.68 Hgb 13.9 L Hct 41.8 L MCV 89.3 MCH 29.7 MCHC 33.3 RDW 13.9 Plt Count 157 L MPV 10.0 Immature Gran % (Auto) 0.8 H Neut % (Auto) 71.7 Lymph % (Auto) 17.9 L [place]mort[place] % (Auto) 7.9 Eos % (Auto) 1.1 Baso % (Auto) 0.6 Lymph # (Auto) 1.2 Th[place]morton # (Auto) 0.5 Eos # (Auto) 0.1 Baso # (Auto) 0.0 Abs Immat Gran (auto) 0.05 H Absolute Neuts (auto) 4.7 Absolute Nucleated RBC 0.000 Nucleated RBC % (auto) 0.0 D-Dimer High Sensitivty Sodium 140 Potassium 4.1 Chloride 107 Carbon Dioxide 23 Anion Gap 14 BUN 11 Creatinine 0.90 Estim Creat Clear Calc 68.2 Estimated GFR > 60 Random Glucose 88 Calcium 9.5 Magnesium 2.0 Total Bilirubin 0.9 AST 24 ALT 8 Alkaline Phosphatase 64 Troponin I High Sens 5.5 6.0 B-Natriuretic Peptide 111 H Total Protein 6.2 L Albumin 4.0 Lipase 27 TSH 1.57 01/31/25 04:06 WBC 7.0 RBC 4.68 Hgb 13.6 L Hct 42.2 MCV 90.2 MCH 29.1 MCHC 32.2 RDW 13.9 Plt Count 163 MPV 10.4 Immature Gran % (Auto) Neut % (Auto) Lymph % (Auto) Th[place]mort[place] % (Auto) Eos % (Auto) Baso % (Auto) Lymph # (Auto) [place] # (Auto) Eos # (Auto) Baso # (Auto) Abs Immat Gran (auto) Absolute Neuts (auto) Absolute Nucleated RBC 0.000 Nucleated RBC % (auto) 0.0 D-Dimer High Sensitivty < 150 Sodium 139 Potassium 3.9 Chloride 107 Carbon Dioxide 22 Anion Gap 14 BUN 9 Creatinine 0.77 Estim Creat Clear Calc 79.7 Estimated GFR > 60 Random Glucose 77 Calcium 9.1 Magnesium 2.0 Total Bilirubin AST ALT Alkaline Phosphatase Troponin I High Sens B-Natriuretic Peptide Total Protein Albumin Lipase TSH Imaging Radiologist's impression: Impressions Chest X-Ray 01/30/25 14:02 IMPRESSION: No active pulmonary disease. Electronically signed by: Tree Verma MD 01/30/2025 03:18 PM EDT Assessment and Plan (1) Atrial fibrillation, new onset: Status: Acute New onset atrial fibrillation this elderly gentleman most likely related to age and hypertension. Echocardiogram is being performed and will be reviewed. Rate appears to be adequately control and symptoms have resolved. His symptoms appear to be vague chest discomfort along with rapid heart rate most likely related to atrial fibrillation. There was no evidence of acute myocardial ischemia either by EKG or by biomarkers. CHADSVASC score of 3 and would consider oral anticoagulation therapy, Eliquis 5 mg b.i.d.. Recommend PT evaluation for fall risk evaluation. Agree with metoprolol for rate control. Rate appears to be adequately control. Will review the echocardiogram once performed. Otherwise from cardiac perspective patient came be discharged home later today. With at some point time and have a discussion for rhythm control approach. Will follow up in the clinic in 3-4 weeks' time after Holter monitor. Will follow if need be. Thank you for allowing me to partake in his care Procedures Date of Service Date of Service: 01/31/25
[2025-01-31] MEDS: 0.9 % Sodium Chloride Flush 3 ML SYRINGE IVFLUSH ×2 (16:09→19:33)
[2025-01-31] MEDS: Atorvastatin Calcium 10 MG TABLET PO (20:00)
[2025-01-31] MEDS: Albumin Human 25 % 100 ML 133.33 ML IV ×2 (20:02→20:50)
[2025-02-01 03:20] VITALS: BP 155/86; PULSE 85; RESP 16; TEMP 36.3; O2SAT 99
[2025-02-01 07:10] LABS: Hematocrit 45.2 % (42.0-52.0); Hemoglobin 14.6 g/dl (14.0-18.0); Mean Corpuscular HGB Conc 32.3 g/dl (31.0-36.0); Mean Corpuscular Hemoglobin 29.1 pg (27.0-33.0); Mean Corpuscular Volume 90.2 fL (80.0-98.0); Mean Platelet Volume 10.1 fL (9.4-12.4); Platelet Count 176 X10*3/uL (160-400); Red Blood Count 5.01 X10*6/uL (4.60-5.80); Red Cell Distribution Width 13.9 % (11.0-16.0); White Blood Count 7.2 X10*3/uL (4.8-10.8)
[2025-02-01 07:13] LABS: Anion Gap 14 (12-20); Blood Urea Nitrogen 18 mg/dL (9-16); Carbon Dioxide 25 mmol/L (22-29); Chloride 103 mmol/L (96-108); Creatinine Clr Calc Pharmacy 71.2; Estimated Glomerular Filt Rate > 60; Glucose Random 81 mg/dL (60-115); Magnesium 2.1 mg/dL (1.6-2.6); Potassium 3.9 mmol/L (3.3-5.1); Sodium 138 mmol/L (135-145)
[2025-02-01 08:00] VITALS: BP 102/67; PULSE 99; RESP 18; O2SAT 100
[2025-02-01] MEDS: Metoprolol Tartrate 50 MG TABLET PO ×3 (08:07→16:46)
[2025-02-01] MEDS: predniSONE 5 MG TABLET PO (08:07)
[2025-02-01] MEDS: Apixaban 5 MG TABLET PO ×2 (08:07→20:45)
[2025-02-01] MEDS: Cholecalciferol (Vitamin D3) 25 MCG TABLET 50 MCG PO (08:07)
[2025-02-01] MEDS: 0.9 % Sodium Chloride Flush 3 ML SYRINGE IVFLUSH ×3 (08:08→20:45)
--- NOTE | 2025-02-01 10:32 | PM.PNCARD ---
Subjective Subjective Date of Service: 02/01/25 Principal diagnosis: New onset atrial fibrillation Interval history: Patient heart rate remains borderline elevated. Blood pressure is low. His other medications for blood pressure control has been withheld. Denies any cardiac symptoms at current point time. Only concerned about needing rehab. Echo shows normal LV ejection fraction but severely dilated left atrium Review of Systems Constitutional: Reports weakness Eyes: Reports no additional eye complaints Cardiovascular: Reports no additional cardiovascular complaints Reports weakness Physical Exam Vital Signs: Last Vital Signs Temp 97.3 F 02/01/25 03:20 Pulse 99 02/01/25 08:00 Resp 18 02/01/25 08:00 BP 102/67 02/01/25 08:00 Pulse Ox 100 02/01/25 08:00 O2 Del Method Room Air 02/01/25 08:00 BMI result Body Mass Index 20.1 Const General: cooperative, comfortable, no acute distress, alert and awake Nutritional Appearance: thin Orientation/consciousness: patient oriented x3 Limitations: no limitations HEENT Head: Yes normocephalic and Yes atraumatic Neck Neck: Yes trachea midline, Yes supple and Yes no JVD Resp Effort & Inspection: normal respiratory effort Auscultation: diminished lung sounds Cardio Jugular venous distension: no JVD Rate: regular rate Rhythm: abnormal rhythm irregularly irregular Heart sounds: S1 normal heart sound present, S2 normal heart sound present, no click, no gallops, no murmurs and no rubs GI Auscultation: normal bowel sounds Skin General skin exam: no rashes or lesions noted Neuro General: patient oriented x3 and no focal motor deficits Extrem General: Yes no clubbing, cyanosis or edema Psych Appearance: grossly normal Objective Labs and Meds 02/01/25 06:15 02/01/25 06:15 Lab results: Laboratory Results - last 24 hr 02/01/25 06:15 WBC 7.2 RBC 5.01 Hgb 14.6 Hct 45.2 MCV 90.2 MCH 29.1 MCHC 32.3 RDW 13.9 Plt Count 176 MPV 10.1 Absolute Nucleated RBC 0.000 Nucleated RBC % (auto) 0.0 Sodium 138 Potassium 3.9 Chloride 103 Carbon Dioxide 25 Anion Gap 14 BUN 18 H Creatinine 0.85 Estim Creat Clear Calc 71.2 Estimated GFR > 60 Random Glucose 81 Calcium 10.0 D Magnesium 2.1 Progress Note: A&P Assessment and plan (1) Atrial fibrillation, new onset: Status: Acute Assessment and Plan: New onset atrial fibrillation this elderly gentleman without any obvious symptoms at current point time. Not having any chest pain or palpitations at this point time. Rate is borderline controlled. Will maximize metoprolol to 50 mg q.6 hours and hold all other blood pressure medications. Continue full oral anticoagulation. No signs or symptoms of heart failure. Patient has significant left atrial enlargement which seems like might have more chronic/persistent atrial fibrillation and will therefore only pursue rate control approach at this point time. Will sign of the case. Thank you for allowing me to partake in his care Time Spent With Patient Time: Total time managing care of this patient today ____ minutes. Progress Note: Quality Stroke Does the patient have a stroke diagnosis?: No Procedures Date of Service Date of Service: 02/01/25
--- NOTE | 2025-02-01 10:37 | HO.PM.IMPN ---
Subjective Subjective Date of Service: 02/01/25 Interval History: no complaints, heart rate low 100s Physical Exam Vital Signs: Vital Signs: Last Vital Signs Temp 97.3 F 02/01/25 03:20 Pulse 99 02/01/25 08:00 Resp 18 02/01/25 08:00 BP 102/67 02/01/25 08:00 Pulse Ox 100 02/01/25 08:00 O2 Del Method Room Air 02/01/25 08:00 BMI result Body Mass Index 20.1 Const: General: cooperative, comfortable, no acute distress, alert and awake Nutritional Appearance: thin Orientation/consciousness: patient oriented x3 Limitations: no limitations HEENT: Head: Yes normocephalic and Yes atraumatic Neck: Neck: Yes trachea midline, Yes supple and Yes no JVD Resp: Effort & Inspection: normal respiratory effort Auscultation: diminished lung sounds Cardio: Jugular venous distension: no JVD Rate: regular rate Rhythm: abnormal rhythm irregularly irregular Heart sounds: S1 normal heart sound present, S2 normal heart sound present, no click, no gallops, no murmurs and no rubs GI: Auscultation: normal bowel sounds Skin: General skin exam: no rashes or lesions noted Neuro: General: patient oriented x3 and no focal motor deficits Extrem: General: Yes no clubbing, cyanosis or edema Psych: Appearance: grossly normal Objective Data Active Medications Acetaminophen (Acetaminophen 325 Mg Tablet) 650 mg PO Q6H PRN PRN Reason: Pain, Mild 1-3,fever,headache Amlodipine Besylate (Amlodipine Besylate 5 Mg Tablet) 5 mg PO DAILY [facility]; Protocol Last Admin: 01/31/25 08:12 Dose: 5 mg Documented By: HUNTER Apixaban (Apixaban 5 Mg Tablet) 5 mg PO BID [facility] Last Admin: 02/01/25 08:07 Dose: 5 mg Documented By: CHANG Atorvastatin Calcium (Atorvastatin Calcium 10 Mg Tablet) 10 mg PO BEDTIME [facility] Last Admin: 01/31/25 20:00 Dose: 10 mg Documented By: TARIQ Calcium Carbonate (Calcium Carbonate 750 Mg Tab.Chew) 750 mg PO Q4H PRN PRN Reason: Heartburn Hydralazine HCl (Hydralazine Hcl 50 Mg Tablet) 50 mg PO TID [facility]; Protocol Last Admin: 01/31/25 15:01 Dose: Not Given Documented By: JEN Non-Admin Reason: Decreased Blood Pressure Magnesium Hydroxide (Milk Of Magnesia 30 Ml Oral.Susp) 30 ml PO DAILY PRN PRN Reason: Constipation Melatonin (Melatonin 3 Mg Tablet) 6 mg PO BEDTIME PRN PRN Reason: Insomnia Metoprolol Tartrate (Metoprolol Tartrate 50 Mg Tablet) 50 mg PO QID [facility]; Protocol Prednisone (Prednisone 5 Mg Tablet) 5 mg PO DAILY [facility] Last Admin: 02/01/25 08:07 Dose: 5 mg Documented By: CHANG Sodium Chloride (0.9 % Sodium Chloride Flush 3 Ml Syringe) 3 ml IVFLUSH QSHIFT [facility] Last Admin: 02/01/25 08:08 Dose: 3 ml Documented By: CHANG Vitamin D (Cholecalciferol (Vitamin D3) 25 Mcg Tablet) 50 mcg PO DAILY [facility] Last Admin: 02/01/25 08:07 Dose: 50 mcg Documented By: CHANG Labs 02/01/25 06:15 02/01/25 06:15 Labs: Laboratory Results - last 24 hr 02/01/25 06:15 MCV 90.2 MCH 29.1 MCHC 32.3 RDW 13.9 Plt Count 176 MPV 10.1 Absolute Nucleated RBC 0.000 Nucleated RBC % (auto) 0.0 Anion Gap 14 Estim Creat Clear Calc 71.2 Estimated GFR > 60 Random Glucose 81 Calcium 10.0 D Magnesium 2.1 Assessment and Plan (1) Atrial fibrillation, new onset: Status: Acute Plan 74M PMH htn, 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, hld, presented with chest pain new onset afib with rvr continue apixiban, increase lopressor to 50mg qid echo - normal ef, severe left atrial enlargement, reduced RV cardio following htn holding amlodipine, hydralazine to make room for lopressor 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 hld statin deconditioning pt recommending str dvt prophylaxis - gibran dnr/dni reason for continued hospitalization:rate control adjustments Quality Stroke Does the patient have a stroke diagnosis?: No VTE Prior VTE?: No VTE Risk Level:: Medical - moderate - high VTE Device Contraindication: Treatment Not Indicated VTE Drug Contraindication: N/A - Med Ordered
--- NOTE | 2025-02-01 11:11 | MHC.CM.PN ---
Patient has been changed from Observation to INPT. IMM delivered 02/01/25.
[2025-02-01 11:55] VITALS: BP 124/75; PULSE 99; RESP 18; TEMP 36.4; O2SAT 98
--- NOTE | 2025-02-01 13:48 | PM.DS ---
DS: Providers Provider Date of Service: 02/02/25 Date of admission: 02/01/25 10:13 Date of discharge: 02/02/25 Primary care physician: Tonny Chamberlain MD Consults: 01/30/25 17:27 Consult to Cardiology Routine Consulting Provider: [facility] Reason for consultation: new afib Has provider been notified: Yes 01/31/25 16:56 Consult to Wound Care Routine Reason for consultation: left foot callus Has provider been notified: Yes DS: Diagnosis Discharge Diagnosis (1) Atrial fibrillation, new onset: Status: Acute DS: Summary Hospital Course Hospital Course: from initial hpi: 74M PMH htn, 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, hld, presented with chest pain. The patient is a poor historian. Reports intermittent heaviness on the left side of his chest, shortness of breath, worse on exertion, for years, his significant other was also having medical issues so they called EMS for both of them. denies fever, chills, n/v/d, noted to be in rapid afib low 100s. hospital course: patient was admitted for chest pain due to new onset afib with RVR. echo showed normal EF with severe left atrial enlargement, thereofre, rate control strategy was employed. was titrated up to lopressor 100mg bid with good control of rate. started on eliquis. for hyperension, home meds of hydralazine and amlodipine have been discontinue to make room for lopressor. no signs of ACS. for leukocytoclastic vasculitis was continued on baseline chronic prednisone 5mg daily. for hld continued on statin. patient was seen by PT who recommended STR. he is expected to require less than 30 days. Time Attestation Discharge Coordination Time (in mins): 33 Quality: Safe Use of Opioids Does Pt have an Active Cancer Diagnosis on the Problem List?: No Quality: Stroke Does the patient have a stroke diagnosis?: No Physical Exam Vital Signs: Vital Signs: Last Vital Signs Temp 97.6 F 02/01/25 11:55 Pulse 99 02/01/25 11:55 Resp 18 02/01/25 11:55 BP 124/75 02/01/25 11:55 Pulse Ox 98 02/01/25 11:55 O2 Del Method Room Air 02/01/25 11:55 BMI result Body Mass Index 20.1 Const: General: cooperative, comfortable, no acute distress, alert and awake Nutritional Appearance: thin Orientation/consciousness: patient oriented x3 Limitations: no limitations HEENT: Head: Yes normocephalic and Yes atraumatic Neck: Neck: Yes trachea midline, Yes supple and Yes no JVD Resp: Effort & Inspection: normal respiratory effort Auscultation: diminished lung sounds Cardio: Jugular venous distension: no JVD Rate: regular rate Rhythm: abnormal rhythm irregularly irregular Heart sounds: S1 normal heart sound present, S2 normal heart sound present, no click, no gallops, no murmurs and no rubs GI: Auscultation: normal bowel sounds Skin: General skin exam: no rashes or lesions noted Neuro: General: patient oriented x3 and no focal motor deficits Extrem: General: Yes no clubbing, cyanosis or edema Psych: Appearance: grossly normal DS: Data Data Completed and Pending Labs on day of discharge: Laboratory Results - last 24 hr 02/01/25 06:15 WBC 7.2 RBC 5.01 Hgb 14.6 Hct 45.2 MCV 90.2 MCH 29.1 MCHC 32.3 RDW 13.9 Plt Count 176 MPV 10.1 Absolute Nucleated RBC 0.000 Nucleated RBC % (auto) 0.0 Sodium 138 Potassium 3.9 Chloride 103 Carbon Dioxide 25 Anion Gap 14 BUN 18 H Creatinine 0.85 Estim Creat Clear Calc 71.2 Estimated GFR > 60 Random Glucose 81 Calcium 10.0 D Magnesium 2.1 Discharge Plan Discharge Anticipated Discharge Date/Time: 02/01/25 13:46 Patient Disposition: [facility] Discharge Diagnosis: afib Referrals: Tonny Chamberlain MD [Primary Care Provider] - 1 Week Discharge Medications: New Eliquis 5 mg Tablet 5 mg PO BID Qty: 0 0RF metoprolol tartrate 50 mg Tablet 100 mg PO BID Qty: 0 0RF Protocol: Hold for SBP/HR < HOLD for SBP < : 90 HOLD for HR < : 60 Continued simvastatin 5 mg tablet 5 mg PO DAILY prednisone 5 mg tablet 5 mg PO DAILY cholecalciferol (vitamin D3) 50 mcg (2,000 unit) tablet 50 mcg PO DAILY Discontinued amlodipine 5 mg tablet 5 mg PO DAILY hydralazine 50 mg tablet 50 mg PO TID Discharge Orders: Discharge Order (Routine); Ordered 02/01/25 Ordered By: Narciso Lopez Diet: Advance to usual diet Activity on Discharge: As tolerated Stand Alone Forms: Patient Portal Discharge page Print Language: Polish Care Plan Goals: manage afib Health Concerns: afib Plan of Treatment: stop amlodipine and hydralazine starting lopressor 100mg bid starting eliquis rehab Assessment: see above
--- NOTE | 2025-02-01 14:36 | MHC.CM.PN ---
Patient has accepted a bed offered by [facility]. He will need an MDS for Approval. His partner will discharge to the same SNF today. [facility] via BLS.
[2025-02-01 15:53] VITALS: BP 121/77; PULSE 90; RESP 18; TEMP 37.1; O2SAT 98
[2025-02-01 16:46] VITALS: BP 104/66; PULSE 76
--- NOTE | 2025-02-01 16:46 | HO.WOUND ---
Wound Consult: Initial 74yr old? male admitted to [facility] on 02/01/25 10:13- See progress notes and H&P for detailed history.? Wound consult placed for Left foot Callus.? Patient agreeable to assessment and photo documentation.? Patient reports he follows closely with his stripper opaquer. He reports he has his nails trimmed regularly and the provider pares down the callus as needed. He reports he provides meticulous foot care and assess his feet daily he reports he does this daily since the great toe amputation in 2012. He reports his stripper opaquer does not want him to wear a dressing to the callused area since he is afraid moisture will be trapped. The patient is agreeable to cleansing with betadine to keep dry.
[2025-02-01 20:00] VITALS: BP 92/64; PULSE 75; RESP 16; TEMP 36.4; O2SAT 98
[2025-02-01] MEDS: Atorvastatin Calcium 10 MG TABLET PO (20:45)
[2025-02-02] VITALS (7 sets, daily range): BP systolic 102–124; BP diastolic 65–75; PULSE 66–96; RESP 16–18; TEMP 36–36.5; O2SAT 94–100
[2025-02-02] MEDS: predniSONE 5 MG TABLET PO (08:50)
[2025-02-02] MEDS: 0.9 % Sodium Chloride Flush 3 ML SYRINGE IVFLUSH ×2 (08:50→16:43)
[2025-02-02] MEDS: Metoprolol Tartrate 50 MG TABLET PO ×3 (08:50→16:43)
[2025-02-02] MEDS: Cholecalciferol (Vitamin D3) 25 MCG TABLET 50 MCG PO (08:50)
[2025-02-02] MEDS: Apixaban 5 MG TABLET PO (08:50)
--- NOTE | 2025-02-02 09:01 | MHC.CM.PN ---
MDS initiated and completed today, faxed to MDS screening.
--- NOTE | 2025-02-02 10:30 | P.PNIM_ITS ---
Subjective Subjective Date of Service: 02/02/25 Interval History: no complaints, heart rate better controlled Physical Exam 2 Vital Signs: Vital Signs: Last Vital Signs Temp 97.6 F 02/02/25 08:00 Pulse 76 02/02/25 08:00 Resp 18 02/02/25 08:00 BP 124/75 02/02/25 08:00 Pulse Ox 100 02/02/25 08:00 O2 Del Method Room Air 02/02/25 08:00 BMI result Body Mass Index 20.1 Const: General: cooperative, comfortable, no acute distress, alert and awake Nutritional Appearance: thin Orientation/consciousness: patient oriented x3 Limitations: no limitations HEENT: Head: Yes normocephalic and Yes atraumatic Neck: Neck: Yes trachea midline, Yes supple and Yes no JVD Resp: Effort & Inspection: normal respiratory effort Auscultation: d iminished lung sounds Cardio: Jugular venous distension: no JVD Rate: regular rate Rhythm: a bnormal rhythm irregularly irregular Heart sounds: S1 normal heart sound present, S2 normal heart sound present, no click, no gallops, no murmurs and no rubs GI: Auscultation: normal bowel sounds Skin: General skin exam: no rashes or lesions noted Neuro: General: patient oriented x3 and no focal motor deficits Extrem: General: Yes no clubbing, cyanosis or edema Psych: Appearance: grossly normal Objective Data Active Medications Acetaminophen (Acetaminophen 325 Mg Tablet) 650 mg PO Q6H PRN PRN Reason: Pain, Mild 1-3,fever,headache Apixaban (Apixaban 5 Mg Tablet) 5 mg PO BID [facility] Last Admin: 02/02/25 08:50 Dose: 5 mg Documented By: CHANG Atorvastatin Calcium (Atorvastatin Calcium 10 Mg Tablet) 10 mg PO BEDTIME [facility] Last Admin: 02/01/25 20:45 Dose: 10 mg Documented By: TARIQ Calcium Carbonate (Calcium Carbonate 750 Mg Tab.Chew) 750 mg PO Q4H PRN PRN Reason: Heartburn Magnesium Hydroxide (Milk Of Magnesia 30 Ml Oral.Susp) 30 ml PO DAILY PRN PRN Reason: Constipation Melatonin (Melatonin 3 Mg Tablet) 6 mg PO BEDTIME PRN PRN Reason: Insomnia Metoprolol Tartrate (Metoprolol Tartrate 50 Mg Tablet) 50 mg PO QID [facility]; Protocol Last Admin: 02/02/25 08:50 Dose: 50 mg Documented By: CHANG Prednisone (Prednisone 5 Mg Tablet) 5 mg PO DAILY [facility] Last Admin: 02/02/25 08:50 Dose: 5 mg Documented By: CHANG Sodium Chloride (0.9 % Sodium Chloride Flush 3 Ml Syringe) 3 ml IVFLUSH QSHIFT [facility] Last Admin: 02/02/25 08:50 Dose: 3 ml Documented By: CHANG Vitamin D (Cholecalciferol (Vitamin D3) 25 Mcg Tablet) 50 mcg PO DAILY [facility] Last Admin: 02/02/25 08:50 Dose: 50 mcg Documented By: CHANG Labs 02/01/25 06:15 02/01/25 06:15 Assessment and Plan (1) Atrial fibrillation, new onset: Status: Acute Plan 74M PMH htn, 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, hld, presented with chest pain new onset afib with rvr continue apixiban, increased lopressor to 100mg qid echo - normal ef, severe left atrial enlargement, reduced RV cardio following htn holding amlodipine, hydralazine to make room for lopressor 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
--- NOTE | 2025-02-02 11:10 | MHC.CM.PN ---
Per pts request, new HCP completed with pt, now on file.
--- NOTE | 2025-02-02 15:39 | MHC.CM.PN ---
Addendum entered by Agata Means 02/02/25 15:56: Per [facility] lia[facility] Sofiya, pt has been approved to discharge to their facility today, he will transport via [facility]. Pt aware and in agreement with discharge plan, pts HCP January was called and updated. Original Note: [facility] approval received. This CM has been working with pts HCP/January and [facility] liaison Sofiya to finalize pts discharge. Sofiya has requested forms with pts financial information to be completed and signed by the pt, this CM facilitated this with HCP/January and faxed the completed forms to Sofiya. Per Sofiya, she will let us know if they have been approved and if they can accept the pt today.
== END 2025-02-02 19:45 | disposition skilled nursing facility (03) | DRG 309 ==
LOC: HO.ED 16:58 → HO.EDOVER 17:23 → HO.IMC 01-31 14:11
PROVIDERS: Physician Assistant; Admitting Provider Internal Medicine; Emergency Provider Emergency Medicine Emergency Medical Services; PCP Internal Medicine; Visit Provider Internal Medicine
DX: I48.91 Unspecified atrial fibrillation (principal); M31.0 Hypersensitivity angiitis; Z66 Do not resuscitate; I10 Essential (primary) hypertension; E78.5 Hyperlipidemia, unspecified; Z79.52 Long term (current) use of systemic steroids; Z79.899 Other long term (current) drug therapy
CPT/HCPCS: 36415; 71046; 80048; 80053; 83690; 83735; 83880; 84443; 84484; 85025; 85027; 85379; 93005; 93306; 97116; 97161; 99222; 99285; P9047; Q9957

== ENCOUNTER → 2025-01-30 14:24 | Outpatient (BNV) | payer MEDICARE, MEDICAID, SELFPAY | PROVIDERS: Emergency Provider Emergency Medicine Emergency Medical Services; PCP Internal Medicine; Visit Provider Radiology Diagnostic Radiology | DX: R07.9 Chest pain, unspecified (principal) | CPT/HCPCS: 71046 ==

== ENCOUNTER 2025-01-30 16:54 | Outpatient (BNV) | payer MEDICARE, MEDICAID, SELFPAY | END 2025-01-31 07:00 | PROVIDERS: Admitting Provider Internal Medicine; Emergency Provider Emergency Medicine Emergency Medical Services; PCP Internal Medicine; Visit Provider Internal Medicine Cardiovascular Disease | DX: I51.7 Cardiomegaly (principal); I27.20 Pulmonary hypertension, unspecified; I34.81 Nonrheumatic mitral (valve) annulus calcification | CPT/HCPCS: 93306 ==

== ENCOUNTER → 2025-01-30 16:54 | Outpatient (BNV) | payer MEDICARE, MEDICAID, SELFPAY | PROVIDERS: Admitting Provider Internal Medicine; Emergency Provider Emergency Medicine Emergency Medical Services; PCP Internal Medicine; Visit Provider Internal Medicine | DX: I48.91 Unspecified atrial fibrillation (principal) | CPT/HCPCS: 99223; 99232 ==

== ENCOUNTER → 2025-01-30 16:54 | Outpatient (BNV) | payer MEDICARE, MEDICAID, SELFPAY | PROVIDERS: Admitting Provider Internal Medicine; Emergency Provider Emergency Medicine Emergency Medical Services; PCP Internal Medicine; Visit Provider Internal Medicine Cardiovascular Disease | DX: I48.91 Unspecified atrial fibrillation (principal) | CPT/HCPCS: 99233 ==